=== PATIENT | male | born 2000 | race Caucasian/White ===

== ENCOUNTER 2020-10-05 22:43 | Emergency (ER) | payer OTHER ==
--- NOTE | 2020-10-05 23:51 | XR ---
EXAMINATION TYPE: XR lumbosacral spine min 4V DATE OF EXAM: 10/05/2020 COMPARISON: NONE HISTORY: Back pain TECHNIQUE: 5 views FINDINGS: Lumbar vertebra have normal alignment. Posterior elements are intact. Disc spaces are fairl y normal. Sacroiliac joints appear intact. There is no compression fracture. IMPRESSION: Negative lumbar spine exam. No fracture.
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
[2020-10-06 00:10] VITALS: BP 150/78; PULSE 100; RESP 17; TEMP 97.9
== END 2020-10-06 00:07 | disposition home or self-care (01) ==
LOC: EC 22:43
DX: S39.012A Strain of muscle, fascia and tendon of lower back, initial encounter (principal); X58.XXXA Exposure to other specified factors, initial encounter; Y99.0 Civilian activity done for income or pay
CPT/HCPCS: 72110; 99283